=== PATIENT | female | born 2000 | race Caucasian/White ===

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

== ENCOUNTER 2021-09-28 09:00 | Outpatient (RCR) | payer BC ==
[~2021-09-28 09:00] MED LIST changes: +FLEXERIL 1010 MG/TAB PO
== END 2021-10-07 | disposition home or self-care (01) ==
LOC: PT.GENESIS
DX: Z98.890 Other specified postprocedural states (principal)

== ENCOUNTER 2021-10-17 10:45 | Outpatient (RCR) | payer BC | END 2021-11-01 09:39 | disposition home or self-care (01) | LOC: PT.GENESIS 10:45 | DX: Z98.890 Other specified postprocedural states (principal) ==